=== PATIENT | male | born 1965 | race Caucasian/White ===

== ENCOUNTER 2022-07-16 14:28 | Emergency (ER) | payer SELFPAY ==
[~2022-07-16] VITALS: Ht 188 cm; Wt 81.7 kg
== END 2022-07-16 15:11 | disposition home or self-care (01) ==
LOC: ED 14:28
DX: T15.02XA Foreign body in cornea, left eye, initial encounter (principal); X58.XXXA Exposure to other specified factors, initial encounter; F17.200 Nicotine dependence, unspecified, uncomplicated
CPT/HCPCS: 65222; 99283-25

== ENCOUNTER 2024-02-10 18:41 | Inpatient (IN) | payer MEDICAID ==
[~2024-02-10] VITALS: Ht 188 cm; Wt 86.0 kg
--- OUTSIDE RECORDS SUMMARY | 2024-02-10 18:48 | XMS ---
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 Spike has no Care Guidelines for this patient. [place] VISIT COUNT (12 MO.) 2 [facility] Addie Ramirez (Sophia Cortes) 1 [facility] TOTAL 3 NOTE: Visits indicate total known visits. ED/C VISIT TRACKING (12 MO.) 02/10/2024 18:42 [facility] TYPE: Emergency COMPLAINT: - INFECTION [facility]07[facility]2024 12:[facility] TYPE: Emergency DIAGNOSES: - Pain in left foot - Superficial foreign body, left foot, initial encounter - foot pain 01/12/2024 17:53 [facility] Sophia SOLOMON (Sophia Cortes) TYPE: Emergency DIAGNOSES: - Hyperglycemia, unspecified - Nondisplaced fracture of middle phalanx of left lesser toe(s), initial encounter for closed fracture - Residual foreign body in soft tissue - foot pain, high blood sugar - Foot Swelling - High Blood Sugar (Symptomatic) INPATIENT VISIT TRACKING (12 MO.) No inpatient visits to display in this time frame [email or web address]
[2024-02-10] MEDS ORDERED: DAPTOmycin 500 MG/10 ML VIAL IV ONE (21:15)
[2024-02-10 21:54] LABS: BASOPHILS 0.5 % (0-2); EOSINOPHILS 2.4 % (0-6); HEMATOCRIT 49.2 % (35.0-50.0); HEMOGLOBIN 16.6 g/dL (12.0-18.0); LYMPHOCYTES 9.4 % (24-44); MCH 31.8 (27-36); MCHC 33.7 g/dl (30-36); MCV 94.4 fl (81-99); NEUTROPHILS 76.7 % (39-80); PLATELET COUNT 295 K/uL (140-440); RBC 5.21 M/ul (4.3-5.7); RDW 13.9 (10.5-15.0)
[2024-02-10 22:10] LABS: ALBUMIN 3.3 g/dL (3.4-5.0); ALBUMIN/GLOBULIN RATIO 0.73 (1.1-2.4); ANION GAP 12.2 (7-21); BILIRUBIN, TOTAL 0.5 ng/dL (0.2-1.0); BUN/CREATININE RATIO 12.62 (6.0-28.6); CALCIUM 9.4 mg/dL (8.5-10.1); CREATININE, SERUM 1.03 mg/dL (0.70-1.30); POTASSIUM 4.2 mmol/L (3.5-5.1); PROTEIN, TOTAL 7.8 g/dL (6.4-8.2)
[2024-02-10] MEDS ORDERED: DEXTROSE 5% - LACTATED RINGERS 1,000 ML IV SCH (23:00)
[2024-02-10] MEDS ORDERED: ondansetron HCL 4 MG/2 ML VIAL IV PRN (23:00)
[2024-02-10] MEDS ORDERED: MORPHINE SULFATE 4 MG/ML VIAL IV PRN (23:00)
[2024-02-10] MEDS ORDERED: ACETAMINOPHEN 325 MG TAB PO PRN (23:00)
[2024-02-10] MEDS ORDERED: Insulin Regular, Human 100 UNIT/ML ML SUB-Q SCH (23:15)
[2024-02-10] MEDS ORDERED: DEXAMETHASONE SOD PHOS 4 MG/ML VIAL IV ONE (23:45)
[2024-02-10] MEDS ORDERED: diphenhydrAMINE HCL 50 MG/ML VIAL IV ONE (23:45)
[2024-02-11] VITALS (9 sets, daily range): BP systolic 105–134; BP diastolic 63–82
--- NOTE | 2024-02-11 00:03 | NUR ---
PATIENT TO FLOOR BY VAT OPERATOR. VAT OPERATOR GAVE THIS RN REPORT. PATIENT TRANSFERRED FROM STRETCHER TO BED INDEPENDENTLY.
--- NOTE | 2024-02-11 00:20 | NUR ---
VS OBTAINED AND RECORDED. IV FLUID INFUSING PER ORDER. PATIENT IV FLUSHES WNL. CPOX IN PLACE. PATIENT EDUCATED TO ROOM AND CALL LIGHT. BED ALARM ON FOR SAFETY. ASSESSMENT COMPLETE. LLE PHOTOS OBTAINED AND PLACED IN CHART. PHOTO CONSENT OBTAINED AND PLACED IN CHART. PATIENT REPORTS PAIN, BUT DENIES THE NEED FOR PAIN MEDICATION. PATIENT LLE WRAPPED BY THIS RN WITH KERLIX. ALLERGY AND FALL BANDS PLACED ON PATIENT. PATIENT DENIES NEEDS AT THIS TIME. CALL LIGHT IN REACH.
--- NOTE | 2024-02-11 00:30 | NUR ---
THIS RN TALKED TO PATIENT REGARDING HIVES FROM MEDICATION DAPTOMYCIN IN THE ER. PATIENT STATES "I DON'T THINK THAT I HAD A REACTION. THE BLOOD PRESSURE CUFF WAS ON THE SAME ARM MY IV AND IT WOULD ONLY STING WHEN IT WOULD INFLATE. I THINK THE MEDICATION WOULD LEAK WHEN IT WOULD SQUEEZE CAUSING THE HIVES".
--- NOTE | 2024-02-11 02:15 | NUR ---
PATIENT RESTING IN BED ON BACK WITH EYES CLOSED. O2 SAT 93% ON RA. NO FURTHER NEEDS. CALL LIGHT IN REACH.
--- NOTE | 2024-02-11 03:19 | NUR ---
PATIENT RESTING IN BED ON BACK WITH EYES CLOSED. O2 90% ON RA. RESPIRATIONS EVEN AND UNLABORED. CALL LIGHT IN REACH.
--- NOTE | 2024-02-11 05:18 | NUR ---
PATIENT RESTING IN BED WITH EYES CLOSED. RESPIRATIONS EVEN AND UNLABORED. CALL LIGHT IN REACH.
[2024-02-11 05:34] LABS: BASOPHILS 0.4 % (0-2); EOSINOPHILS 0.1 % (0-6); HEMATOCRIT 46.6 % (35.0-50.0); HEMOGLOBIN 15.9 g/dL (12.0-18.0); LYMPHOCYTES 4.7 % (24-44); MCHC 34.2 g/dl (30-36); MCV 93.5 fl (81-99); MONOCYTES 2.8 % (0-12); PLATELET COUNT 282 K/uL (140-440); RBC 4.98 M/ul (4.3-5.7); RDW 13.4 (10.5-15.0)
[2024-02-11 05:46] LABS: ALBUMIN/GLOBULIN RATIO 0.71 (1.1-2.4); ANION GAP 13.3 (7-21); BILIRUBIN, TOTAL 0.6 ng/dL (0.2-1.0); BUN/CREATININE RATIO 15.38 (6.0-28.6); CALCIUM 9.3 mg/dL (8.5-10.1); CREATININE, SERUM 0.91 mg/dL (0.70-1.30); POTASSIUM 4.3 mmol/L (3.5-5.1); PROTEIN, TOTAL 7.2 g/dL (6.4-8.2)
[2024-02-11] MEDS ORDERED: GLUCAGON,HUMAN RECOMBINANT 1 MG/ML VIAL SUB-Q PRN ×2 (07:15→10:15)
[2024-02-11] MEDS ORDERED: IBLOOD GLUCOSE TEST STRIP 1 EA TEST XX PRN ×2 (07:15→10:15)
[2024-02-11] MEDS ORDERED: DEXTROSE 50% 50 ML SYR IV PRN ×4 (07:15→10:15)
[2024-02-11] MEDS ORDERED: DEXTROSE 5% 1,000 ML IV PRN ×2 (07:15→10:15)
--- NOTE | 2024-02-11 07:50 | NUR ---
RECEIVED REPORT FROM ROMEL POWERS. PT RESTING IN BED WITH EYES CLOSED. BREATHING EVEN AND UNLABORED, CPOX IN PLACE WITH >95% O2 SATURATION. CALL LIGHT WITHIN REACH.
[2024-02-11] MEDS ORDERED: IBLOOD GLUCOSE TEST STRIP 1 EA TEST VI SCH ×2 (08:00→12:00)
--- NOTE | 2024-02-11 08:28 | NUR ---
THIS RN CALLS DR. ROLDAN TO UPDATE ON PT CBG OF 462. MD STATES TO INCREASE SS TO HIGH SS, ADD A1C LAB ORDER, AND TO GIVE 15 UNITS HUMULIN INSTEAD OF 11 PER SS. ORDERS ENTERED, REPEAT BACK PERFORMED.
--- NOTE | 2024-02-11 08:29 | NUR ---
SPOKE WITH KEVON IN ELIGIBILITY. SHE IS GOING TO REVIEW IF PATIENT IS ELIGIBLE FOR MEDICAID.
--- NOTE | 2024-02-11 08:59 | NUR ---
DR. ROLDAN TO BEDSIDE.
[2024-02-11] MEDS ORDERED: DAPTOmycin 500 MG/10 ML VIAL IV SCH (09:00)
[2024-02-11] MEDS ORDERED: VANCOMYCIN PER PHARMACY PROTOCOL IV SCH (09:00)
--- NOTE | 2024-02-11 09:14 | NUR ---
PT REQUESTS ICE CHIPS, STATES IS OKAY TO GIVE, GIVEN.
--- NOTE | 2024-02-11 09:51 | NUR ---
UR CLINICAL REVIEW: [facility]- MEETS INPT FOR OSTEOMYELITIS SELF PAY, PENDING MEDICAID ELIGIBILITY APPLICATION INPT 02/10/24 @ 2257 ORDER MATCHES REG NO INSURANCE, NO AUTH REQUIRED PLAN TO RETURN HOME WHEN STABLE 02/13/24
[2024-02-11] MEDS ORDERED: ACETAMINOPHEN 325 MG TAB PO PRN (10:15)
[2024-02-11] MEDS ORDERED: ondansetron HCL 4 MG/2 ML VIAL IV PRN (10:15)
[2024-02-11] MEDS ORDERED: PROCHLORPERAZINE EDISYLATE 10 MG/2 ML VIAL IV PRN (10:15)
[2024-02-11] MEDS ORDERED: HYDROmorphone HCL 1 MG/ML SYR IV PRN (10:15)
[2024-02-11] MEDS ORDERED: bisacodyL 10 MG SUPP PR PRN (10:15)
[2024-02-11] MEDS ORDERED: PHARMACY RENAL DOSE ADJUSTMENT 1 DOSE MISC PO SCH (12:00)
--- NOTE | 2024-02-11 12:10 | NUR ---
In and spoke with Jaydon. He is now living in [place]. 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 His SO is not well and attempting to get SSI. He states they are living off of $400 per month and $10 dollars for food stamps. His truck is broke down and is has not had access to medical, food, work. [facility] was able to work with him and he now has OHP. We discussed transport and using the [employer] bus to get to [place] 5 miles, to the grocery store. He would like a DrMarquise at the clinic in [place]. I will contact for appt. Pt is using the [facility] in [place] at this time. Pt and so do not have phones or will not have internet much longer. Called the clinic in [place] and they have closed. Will work with pt to check if he would prefer a PCP in [place] (40miles) or [place] (5 miles). Updated pt he now has OHP.
--- NOTE | 2024-02-11 13:45 | NUR ---
THIS RN CALLS PROVIDER REGARDING NOT HAVING SS INSULIN ORDERS FOR THIS MEAL TIME. MD STATES TO ORDER HIGH DOSE SSI AND TO HOLD LANTUS ORDER FOR TONIGHT. ORDER ENTERED, REPEAT BACK PERFORMED.
--- NOTE | 2024-02-11 13:47 | NUR ---
MED REC COMPLETE
[2024-02-11] MEDS ORDERED: INSULIN LISPRO 100 UNIT/ML ML SUB-Q SCH ×2 (14:00→17:00)
--- NOTE | 2024-02-11 14:16 | NUR ---
PT AWAKE IN BED, STATES NO NEEDS AT THIS TIME, CALL LIGHT WITHIN REACH.
--- NOTE | 2024-02-11 14:35 | NUR ---
PT NOT AVAILABLE FOR VISIT. PROVIDED PRAYER.
--- NOTE | 2024-02-11 15:53 | NUR ---
DR. RUIZ TO BEDSIDE. PT AWAKE IN BED, GIRLFRIEND AT THE BEDSIDE. PT STATES PAIN IS 3/10 AT THIS TIME, DENIES NEEDS FOR PAIN CONTROL MEASURES AT THIS TIME. L FOOT DRESSING REMOVED BY DR. RUIZ. THIS RN ASSISTS DR. RUIZ IN WOUND SWAB, DEBREIDMENT OF WOUND. PT STATES NO INCREASE IN PAIN, TOLERATES WELL. PURULENT DRAINAGE PRESENT WHEN PRESSURE APPLIED AROUND WOUND AREA. PLAN OF CARE DISCUSSED WITH PT AND PT GIRLFRIEND, PT VERBALIZES UNDERSTANDING. SURGICAL CONSENT FORM COMPLETED WITH DR. RUIZ AND PT. DRESSES FOOT WITH IODOSORB, GAUZE, KERLEX, AND COBAN. MD STATES TO LEAVE DRESSING, STATES DRESSING WILL BE REMOVED IN OR. PT REQUESTS ICE WATER, GIVEN. PT STATES NO FURTHER NEEDS AT THIS TIME. CALL LIGHT WITHIN REACH.
--- NOTE | 2024-02-11 17:54 | NUR ---
THIS RN TO ROOM, PT AND GIRLFRIEND HAVE PIZZA FOR DINNER THAT THEY ORDERED. PT STATES NO NEEDS AT THIS TIME, CALL LIGHT WITHIN REACH.
--- NOTE | 2024-02-11 19:15 | NUR ---
REPORT RECEIVED FROM AGNES URENA. pt RESTING IN THE CHAIR. BOARD UPDATED. CALL LIGHT WITHIN REACH.
--- NOTE | 2024-02-11 19:20 | NUR ---
DR. CRAWLEY CALLED TO FOLLOW-UP TO SEE IF PODIATRY CAME TO SEE PATIENT, INFORMED THE PLAN WAS TO GO TO SURGERY TOMORROW MORNING WITH DR. RUIZ. PER DR. CRAWLEY, CONSULT ORDERED DISCONTINUED.
--- NOTE | 2024-02-11 20:33 | NUR ---
CAN OBTAINED VITALS AND I&O. PT STATES NO FURHTER NEEDS AT THIS ITME. CALL LIGHT WITHIN REACH AND IN ROOM.
[2024-02-11] MEDS ORDERED: INSULIN GLARGINE-YFGN 100 UNIT/ML ML SUB-Q SCH (21:00)
--- NOTE | 2024-02-11 21:00 | NUR ---
ASSESSMENT DONE. BG CHECKED WITH A RESULTS OF 297. SS INSULIN ADMINISTERED. SCHEDULED MEDICATION ADMINISTERED. pt DENIES ANY NEEDS AT THIS TIME. LEFT FOOT DRESSING CLEAN DRY AND INTACT. CALL LIGHT WITHIN REACH.
--- NOTE | 2024-02-11 23:46 | NUR ---
pt RESTING IN THE BED WITH EYES CLOSED. RR EVEN AND UNLABORED. pt PLACED ON 2LNC, SATTING AT 92%. NO OTHER NEEDS AT THIS TIME. CALL LIGHT WITHIN REACH.
[2024-02-12] VITALS (12 sets, daily range): BP systolic 91–117; BP diastolic 53–65
--- NOTE | 2024-02-12 00:38 | NUR ---
PHONE CALL PLACED TO MD ROLDAN ABOUT pt REFUSING TO PUT O2 ON AND HIS O2 SATURTION DROPPING DOWN TO 84%. pt WAS EDUCATED THAT HIS SURGERY COULD BE DELAYED IF WE DO NOT MANAGE HIS O2 CORRECTLY. THE PATIENT THEN STATED THAT HE'LL JUST GO HOME THEN. pt WAS WANTING TO TAKE OFF THE CPOX BECAUSE pt DID NOT LIKE THAT THE CPOX WAS ALARMING. STATED THAT WE COULD TAKE THE CPOX OFF.
--- NOTE | 2024-02-12 02:58 | NUR ---
pt RESTING IN THE BED. pt DENIES ANY NEEDS AT THIS TIME. CALL LIGHT WITHIN REACH.
--- NOTE | 2024-02-12 04:31 | NUR ---
pt RESTING IN THE BED WITH EYES CLOSED. RR EVEN AND UNLABORED. CALL LIGHT WITHIN REACH.
[2024-02-12 05:38] LABS: BASOPHILS 0.4 % (0-2); HEMATOCRIT 41.8 % (35.0-50.0); HEMOGLOBIN 14.3 g/dL (12.0-18.0); LYMPHOCYTES 10.3 % (24-44); MCHC 34.2 g/dl (30-36); MCV 93.6 fl (81-99); MONOCYTES 9.5 % (0-12); NEUTROPHILS 78.8 % (39-80); PLATELET COUNT 318 K/uL (140-440); RBC 4.47 M/ul (4.3-5.7); RDW 13.7 (10.5-15.0)
[2024-02-12 05:59] LABS: ANION GAP 10.8 (7-21); BUN/CREATININE RATIO 22.89 (6.0-28.6); CALCIUM 8.6 mg/dL (8.5-10.1); CREATININE, SERUM 0.83 mg/dL (0.70-1.30); MAGNESIUM 1.8 mg/dL (1.8-2.4); POTASSIUM 3.8 mmol/L (3.5-5.1)
--- NOTE | 2024-02-12 06:54 | NUR ---
pt RESTED THROUGHOUT THE NIGHT. pt REFUSED O2 IN THE NIGHT AND THE MD BEKA AWARE. NO OTHER CONCERNS AT THIS TIME.
--- NOTE | 2024-02-12 07:55 | NUR ---
RECEIVED REPORT FROM ROMEL POWERS. DONYA GILMORE TELLS THIS RN THAT PT REPORTS HE HAD EATEN PIZZA AT 0200 TODAY. THIS RN TO BEDSIDE, ASKS PT ABOUT LAST TIME HE ATE, PT STATES HE DID NOT EAT THIS MORNING, AND STATES "THE LAST TIME I ATE ANYTHING WAS AROUND NINE O'CLOCK LAST NIGHT". PT AND GIRLFRIEND EDUCATED ON RISKS OF EATING BEFORE SURGERY, PT AND GIRLFRIEND VERBALIZE UNDERSTANDING, STATE AGAIN THAT PT HAS NOT EATEN SINCE APPROXIMATELY 2100 ON 02/11/2024. PT STATES NO CURRENT NEEDS. PT HAS COMPLETED PRE-OP WIPEDOWN AND HAS CHANGED GOWNS. CALL LIGHT WITHIN REACH.
--- NOTE | 2024-02-12 08:03 | NUR ---
TOOK PT BLOOD SUGAR IT WAS AT 376. IT WAS CHARTED NURSE WAS NOTIFIED. PT NOTED "ITS PROBABLY HIGH BECAUSE I ATE A PIZZA AT 2 IN THE MORNING" NURSE WAS NOTIFIED WELL. PT DIDNT NEED ANYTHING ELSE AND CALL LIGHT IS WITHIN REACH.
--- NOTE | 2024-02-12 10:20 | NUR ---
VISITED DURING SPIRITUAL CARE ROUNDS. PT APPEARED TO BE SLEEPING. DID NOT DISTURB. PROVIDED PRAYER.
--- NOTE | 2024-02-12 10:40 | NUR ---
PT FOUND DRINKING WATER FROM [employer] CLAIMS ADJUSTER'S UPON ENTRY TO ROOM TO COMPLETE SURGICAL WIPE DOWN. OR CHARGE UPDATED AND SHEET METAL PRODUCTION WORKER NOTIFIED. OR CHARGE TO UPDATE DR. RUIZ. THIS RN IN ROOM TO INFORM PT OF RISK FOR NOT REMAINING NPO PRIOR TO SURGERY, INCLUDING FURTHER DELAY OF SURGERY, CANCELATION OF SURGERY, ASPIRATION RISK, POST SURGICAL COMPLICATIONS AND PROLONGED HOSPITAL STAY. PT AGGITATED AND STATES HE WANTS TO "TAKE MY CHANCES AND GO HOME SO I CAN EAT". THIS RN OFFERS AMA PAPERWORK AT [place] [facility] PT STATES HE WILL "WAIT AND TALK TO MY OLD LADY". PT AGREES TO NOT DRINK WATER IF HE PLANS TO REMAIN IN ROOM AND AWAIT SURGERY. CURTAIN AND DOOR LEFT OPEN TO INCREASE VISUALIZATION OF PT IN ROOM.
--- NOTE | 2024-02-12 11:21 | NUR ---
INFORMATION FOR [employer] PROVIDED. PATIENT AND SIGNIFICANT OTHER VERBALIZE NO OTHER NEEDS AT THIS TIME. [employer] NUMBER WAS PROVIDED YESTERDAY FOR MEDICAL TRANSPORTATION, DISCUSSED TRANSPORTATION WITH PATIENT AND SPOUSE. INFORMED HIM PCP HAS BEEN SET UP IN [facility] AND APPOINTMENT WILL BE ON DISCHARGE INSTRUCTIONS. VERBALIZES UNDERSTANDING.
--- NOTE | 2024-02-12 11:36 | NUR ---
PT LEAVES FLOOR WITH DAY SURGERY RN.
[2024-02-12] MEDS ORDERED: ondansetron HCL 4 MG/2 ML VIAL ONE (11:38)
[2024-02-12] MEDS ORDERED: SUCCINYLCHOLINE IN 0.9% NACL 200 MG/10 ML SYRINGE ONE (11:38)
[2024-02-12] MEDS ORDERED: LIDOCAINE HCL 2% 5 ML SDV ONE (11:38)
[2024-02-12] MEDS ORDERED: ROCURONIUM BROMIDE 50 MG/5 ML SYR ONE (11:38)
[2024-02-12] MEDS ORDERED: propofoL 200 MG/20 ML VIAL ONE ×2 (11:38→12:42)
[2024-02-12] MEDS ORDERED: fentaNYL citrate 100 MCG/2 ML VIAL ONE (11:38)
[2024-02-12] MEDS ORDERED: DEXAMETHASONE SOD PHOS 4 MG/ML VIAL ONE (11:47)
[2024-02-12] MEDS ORDERED: LIDOCAINE HCL 2% 20 MG/ML VIAL INJ ONE (11:47)
[2024-02-12] MEDS ORDERED: Ropivacaine HCl 0.5% 30 ML VIAL ONE (11:48)
[2024-02-12] MEDS ORDERED: INSULIN LISPRO 100 UNIT/ML ML SUB-Q SCH (12:00)
[2024-02-12] MEDS ORDERED: VANCOMYCIN HCL 500 MG VIAL ONE (12:12)
[2024-02-12] MEDS ORDERED: ePHEDrine sulfate 50 MG/ML AMP ONE (12:18)
[2024-02-12] MEDS ORDERED: VASOPRESSIN 20 UNITS/ML VIAL ONE (12:21)
--- NOTE | 2024-02-12 13:50 | NUR ---
2 CNAS WENT INTO PATIENTS ROOM TO GIVE PATIENT CHG WIPES FOR HIS PRE SURGICAL WIPEDOWN. PATIENT WAS ABLE TO INDEPENDENTLY WIPE HIMSELF DOWN. WHILE CHANGING PATIENTS LINENS, BOTH CNAS REALIZED THAT THE PATIENT HAS BEEN DRINKING WATER. BOTH CNAS AND RN TOLD PATIENT MULTIPLE TIMES THAT HE WAS NOT ALLOWED TO HAVE ANYTHING TO EAT OR DRINK. BOTH CNAS WENT TO NOTIFY THE AQUATICS INSTRUCTOR. AQUATICS INSTRUCTOR THEN CAME IN AND SPOKE TO PATIENT. CALL LIGHT WITHIN REACH, NO FURTHER NEEDS AT THIS TIME.
--- NOTE | 2024-02-12 14:10 | NUR ---
PT ARRIVES TO FLOOR WITH STATE FARM AGENT. RECEIVED REPORT FROM ROMEL RICHARDSON. PT DENIES PAIN, SOB AND NAUSEA AT THIS TIME. FAMILY AT THE BEDSIDE. DRESSING C/D/I. SURGY SHOE ON L FOOT. PT STATES NO FURTHER NEEDS AT THIS TIME, CALL LIGHT WITHIN REACH.
--- NOTE | 2024-02-12 14:28 | NUR ---
02/12/24 1428 Lenore Ayoub 1317- PT ARRIVES TO THE PACU WITH A NATURAL AIRWAY. PT IS SNORING LOUDLY AND MAINTAINING AIRWAY. BREATHING IS EVEN AND UNLABORD. MONITORS PUT IN PLACE. PT IS IN SEMI FOWLERS. PT DOES NOT REACT TO VERBAL AND TACTILE STIMULI. 1328- PT OPENS EYES AND IS TALKING WITH RN. PT ORIENTED TO PACU. PT DENIES PAIN AND NAUSEA. 1330- XRAY AT BEDSIDE. 1334-CBG 305. STOCKING AND SHOE PUT IN PLACE. PT COMPLAINS OF SOME DIZZINESS, BUT NO PAIN OR NAUSEA.PT O2 DROPPED TO 87%. PT ENCOURAGE TO COUGH AND DEEP BREATHE. SATS INCREASED TO 90%. 1338-SATS CONTINUE TO DECREASE DESPITE ALTERNATIVE APPROACHES. O2 VIA NASAL CANNULA PUT IN PLACE. INSENTIVE SPIROMETER GIVEN TO PT AND ENCOURAGED TO USE IT. PT 02 SATS INCREASE TO MID TO LOW 90S WHICH IS HIS BASELINE. 1345- PT USING INCENTIVE SPIROMETER OFF AND ON. PT DENIES PAIN AND NAUSEA. NO OTHER COMPLAINTS. 1405-PT BROUGHT FROM PACU TO MED/SURG. 1410- VS OBTAINED. BED PLUGGED IN AND IN LOWEST POSITION, CALL LIGHT WITHING REACH. CONTINUOUS OXIMETER PLACED ON PT. REPORT GIVEN TO SUSSY URENA AT BEDSIDE. NO QUESTIONS OR CONCERNS AT THIS TIME. CARE FOR PT TURNED OVER AT THIS TIME. 02 PLUGGED IN WALL AND PT SALINE LOCKED.
--- NOTE | 2024-02-12 15:23 | NUR ---
IN ROOM TO ASSESS VITALS AND ADMINISTER ABX. VITALS ARE WNL. SEE E-MAR FOR ABX INFORMATION. PATIENT DENIES ADDITIONAL NEEDS AT THIS TIME. FAMILY AT THE BEDSIDE. CALL LIGHT IN REACH.
[2024-02-12] MEDS ORDERED: SEVOFLURANE 250 ML BTL INH ONE (15:39)
--- NOTE | 2024-02-12 16:10 | NUR ---
IN ROOM TO ASSESS VITALS. PATIENT VITALS WNL. PATIENT STATES THEY HAVE "A LITTLE BIT OF A HEADACHE" AND RATES HEADACHE 2-3/10. PATIENT DECLINES TYLENOL, BLINDS CLOSED. PATIENT REQUESTS ICE WATER. ICE WATER PROVIDED. ABX INFUSION COMPLETE. IV FLUSHED WNL. SALINE LOCKED. PATIENT DENIES ADDITIONAL NEEDS AT THIS TIME. CALL LIGHT IN REACH.
--- NOTE | 2024-02-12 18:05 | NUR ---
THIS RN EDUCATES PT ON NEEDING TO VOID POST-OP. PT STATES NO NEED TO VOID AT THIS TIME. URINAL PROVIDED. THIS RN EDUCATES PT ON BLADDER SCANNER TO MONITOR FOR RETENTION, PT STATES "NO WE ARE NOT DOING THAT, I DON'T NEED TO DO THAT". PT EDUCATION ON RISKS WITH RETENTION, PT VERBALIZES UNDERSTANDING. PT STATES NO FURTHER NEEDS, CALL LIGHT WITHIN REACH.
--- NOTE | 2024-02-12 19:29 | NUR ---
REPORT RECIEVED FROM DAY SHIFT RN. PATIENT RESTING IN BED ON BACK WITH EYES CLOSED. RESIRATIONS EVEN AND UNLABORED. CALL LIGHT IN REACH.
--- NOTE | 2024-02-12 19:45 | NUR ---
CALL LIGHT ANSWERED. PATIENT REPORTS 8/ LLE PAIN. PRN PAIN MEDICATION ADMINISTERED PER PATIENT REQUEST. PATIENT HAS NO FURTHER NEEDS AT THIS TIME. CALL LIGHT IN REACH.
--- NOTE | 2024-02-12 20:33 | NUR ---
VENDING MACHINE COLLECTOR OBTAINED VITALS AND I&O. PT STATES THAT HE WOULD LIKE SOMETHING FOR PAIN. RN NOTIFED. PT STATES NO NOTHER NEEDS AT THIS TIME. CALL LIGHT WITHIN REACH.
--- NOTE | 2024-02-12 20:55 | NUR ---
PATIENT WITH COMPLAINTS OF 10/10 LLE PAIN. PRN PAIN MEDICATION ADMINISTERED PER PATIENT REQUEST. SCHEDULED MEDICATION ADMINISTERED. PATIENT EDUCATED ON THE IMPORATANCE OF BLOOD SUGAR CONTROL ON WOUND HEALING AND OVERALL HEALTH. PATIENT VERBILIZES UNDERSTANDING. PATIENT STATES HE REALLY WISHES HE COULD DRINK A SODA RIGHT NOW BUT KNOW THAT HE SHOUDLNT. THIS RN PROVIDED PATIENT WITH SUGAR FREE SPRITE. PATIENT APPEARS THANKFUL. THIS RN ASKED PATIENT IF HE WAS GOING TO START CHECKING HIS BLOOD SUGAR LEVEL AT HOME. PATIENT STATES HE NEEDS TO GET A WORKING BLOOD SUGAR MONITOR. PATIENT DENIES FURTHER NEEDS AT THIS TIME. LLE ELAVATED ON PILLOW. CPOX IN PLACE. IV FLUSHES WNL. CALL LIGHT IN REACH.
[2024-02-12] MEDS ORDERED: INSULIN GLARGINE-YFGN 100 UNIT/ML ML SUB-Q SCH (21:00)
--- NOTE | 2024-02-12 22:12 | NUR ---
PATIENT RESTING IN BED ON BACK WITH EYES CLOSED. RESPIRATIONS EVEN AND UNLABORED. CALL LIGHT IN REACH.
--- NOTE | 2024-02-12 22:25 | NUR ---
IV ABX INFUSING PER ORDER. NO FURTHER NEEDS. CALL LIGHT IN REACH.
--- NOTE | 2024-02-12 22:59 | NUR ---
PATIENT STATES HE IS COLD. TEMP TURNED UP IN ROOM AND WARM BLANKET PROVIDED. NO FURTHER NEEDS. CALL LIGHT IN REACH.
[2024-02-13] VITALS (10 sets, daily range): BP systolic 109–124; BP diastolic 54–70
--- NOTE | 2024-02-13 00:29 | NUR ---
PATIENT RESTING IN BED WITH EYES CLOSED. RESPIRATIONS EVEN AND UNLABORED. CALL LIGHT IN REACH.
--- NOTE | 2024-02-13 02:01 | NUR ---
VS OBTAINED AND RECORDED. PATIENT DENIES FURTHER NEEDS. CALL LIGHT IN REACH.
--- NOTE | 2024-02-13 04:39 | NUR ---
PATIENT O2 SAT IN MID-HIGH 80s WHILE SLEEPING. THIS RN PLACED OXY MASK AT 2L BECAUSE PATIENT STATED HE DID NOT LIKE THE NASAL CANNULA. PATIENT O2 SAT 92% OXY MASK WHILE RESTING. PATIENT REPORTS 8 LLE PAIN. PRN PAIN MEDICATION ADMINISTERED. LLE DRESSING C/D/I. VS OBTAINED AND RECORDED. PATIENT REPORTS NO FURTHER NEEDS AT THIS TIME. CALL LIGHT IN REACH.
[2024-02-13 05:29] LABS: BASOPHILS 0.7 % (0-2); EOSINOPHILS 3.8 % (0-6); HEMOGLOBIN 13.1 g/dL (12.0-18.0); MCH 31.5 (27-36); MCHC 33.5 g/dl (30-36); MCV 94.2 fl (81-99); MONOCYTES 11.2 % (0-12); NEUTROPHILS 74.3 % (39-80); PLATELET COUNT 278 K/uL (140-440); RBC 4.14 M/ul (4.3-5.7)
[2024-02-13 05:42] LABS: ANION GAP 8.9 (7-21); BUN/CREATININE RATIO 17.33 (6.0-28.6); CALCIUM 8.3 mg/dL (8.5-10.1); CREATININE, SERUM 0.75 mg/dL (0.70-1.30); MAGNESIUM 1.7 mg/dL (1.8-2.4); POTASSIUM 3.9 mmol/L (3.5-5.1)
--- NOTE | 2024-02-13 05:47 | NUR ---
SCHEDULED IV ABX INFUSING PER ORDER. PATIENT DENIES FURTHER NEEDS. CALL LIGHT IN REACHM
--- NOTE | 2024-02-13 07:10 | NUR ---
RECEIVED REPORT FROM ROMEL POWERS. PT RESTING IN BED WITH EYES CLOSED. CPOX IN PLACE, O2 SATURATION >92%. CALL LIGHT WITHIN REACH. ASSUMING CARE OF PT WITH ROMEL JOHN.
--- NOTE | 2024-02-13 09:02 | NUR ---
IN ROOM TO ROUND ON PATIENT. PATIENT SITTING UPRIGHT IN BED EATING BREAKFAST. PATIENT REPORTS 8/10 PAIN AND REQUESTS PAIN MEDICATION. PATIENT DENIES ADDITIONAL NEEDS AT THIS TIME. CALL LIGHT IN REACH.
--- NOTE | 2024-02-13 09:40 | NUR ---
IN ROOM TO ASSESS PATIENT AND ADMINISTER MEDICATIONS, SEE E-MAR. VITAL SIGNS ASSESSED AND ARE WNL. DR. RUIZ IN ROOM TO TAKE DOWN SURGERY SHOES AND DRESSING TO ASSESS SURGICAL SITE. NEW DRESSING APPLIED. SURGERY SHOE REAPPLIED. PATIENT REQUESTS ICE WATER. ICE WATER PROVIDED. PATIENT DENIES ADDTIONAL NEEDS AT THIS TIME. CALL LIGHT IN REACH.
--- NOTE | 2024-02-13 10:42 | NUR ---
IN ROOM TO ROUND ON PATIENT. PATIET SLEEPING IN BED. EASILY AWAKENS FOR PAIN REASSESSMENT. PAIN IMPROVED TO 7/10. PATIENT REPORTS PT WENT WELL. REQUESTS ICE WATER, ICE WATER PROVIDED. PATIENT DENIES ADDITOINAL NEEDS AT THIS TIME. CALL LIGHT IN REACH.
[2024-02-13] MEDS ORDERED: INSULIN LISPRO 100 UNIT/ML ML SUB-Q SCH (12:00)
--- NOTE | 2024-02-13 12:38 | OR ---
[facility] [address] [place], [place] [address] Signed DATE OF OPERATION: 02/12/2024 SURGEON: Nancy Gayle DPM PREOPERATIVE DIAGNOSES: Osteomyelitis with abscess formation and cellulitis, left fifth metatarsophalangeal joint region. POSTOPERATIVE DIAGNOSES: Osteomyelitis with abscess formation and cellulitis, left fifth metatarsophalangeal joint region. PROCEDURE: Amputation of left fifth digit and debridement of fifth metatarsal head. NURSE KOSHER SEALER: Bethel Noel. ANESTHESIA: General. HEMOSTASIS: With an ankle tourniquet. ESTIMATED BLOOD LOSS: Less than 3 mL or minimal. MATERIALS UTILIZED: 2-0 nylon, 3-0 nylon and calcium sulfate absorbable beads with vancomycin. PROCEDURE IN DETAIL: The patient was brought into the operating room and placed on the operating table in the supine position. The patient's left foot was scrubbed, prepped and draped in usual sterile technique. General anesthesia was administered. Attention was directed to the plantar aspect of the patient's left foot where ulcerations were noted in the fourth webspace and also into the intermetatarsal area. There was also a callus of scar tissue aforementioned noted under the fifth metatarsal head that was reportedly from a foreign body. Incision was then performed up through the webspace of fourth and fifth digits between the metatarsal heads and just proximal to the metatarsal heads. The incision was then deepened. Some purulent drainage was noted in this area then also extending Electronically Signed By: NANCY GAYLE DPM 02/13/24 1238 PATIENT NAME: MAYURI COE OPERATIVE REPORT DATE OF : 61 REPORT #: [id number] PHYSICIAN: NANCY GAYLE DPM PCP: NO PRIMARY CARE PHYSICIAN REPORT IS CONFIDENTIAL AND NOT TO BE RELEASED WITHOUT AUTHORIZATION [facility] [address] [place], [place] [address] Signed dorsally above the metatarsal heads. Severity of necrosis was encountered around the area of the metatarsophalangeal joint region. Careful dissection around the joint area revealed necrotic tissue around the base of the proximal phalanx and then extending to the dorsal aspect of the fifth metatarsal. With the appearance of the joint capsule, it was decided at that time that the fifth digit should be removed. A #64 blade was utilized to release the joint capsule around the metatarsophalangeal joint and fifth digit was excised. Careful debridement of necrotic tissue was performed and also avascular tissue such as capsule and tendon. Since the area of necrosis has extended over the dorsal aspect of the fifth metatarsal, this questioned whether or not the infection had ended up in the fifth metatarsal. There was a murcia discoloration of the fifth metatarsal, integrity seemed to be satisfactory. However, decision was made to resect the fifth metatarsal head because imaging had revealed changes consistent with osteomyelitis and there was discoloration noted in this region. Fifth metatarsal head was resected with a sagittal saw. Area was then flushed with copious amounts of sterile normal saline. Remaining unhealthy portions of skin or soft tissue were excised and debrided. Calcium sulfate beads with vancomycin powder mixed was then applied to the area around the distal open portion of the fifth metatarsal and in fact also in the soft tissue approximately to the mid portion of the fifth metatarsal. Decision was made to close the area with the exception of a small amount of purulence, the majority of the infection appears to have stabilized and so the area was closed utilizing 2-0 nylon and 5-0 nylon in interrupted suture technique as well as the vertical mattress technique. Mild tension only was noted at the surgical site. The soft tissue was approximated however, there is a fear that the patient may accidently ambulate on the foot. Therefore, Steri-Strips were also applied to help reinforce the area. Adaptic was then applied with Betadine soaked gauze and then fluff gauze and Coban. Ankle tourniquet was removed and prompt hyperemic response was noted to all the patient's remaining digits 1 through 4 of the left foot. The patient was then escorted to the recovery area with vital signs stable and the patient is to be readmitted to the general medical floor for further care and observation. Nancy Gayle DPM TM/MODL /[id number] Electronically Signed By: NANCY GAYLE DPM 02/13/24 1238 PATIENT NAME: MAYURI COE OPERATIVE REPORT DATE OF : 61 REPORT #: [id number] PHYSICIAN: NANCY GAYLE DPM PCP: NO PRIMARY CARE PHYSICIAN REPORT IS CONFIDENTIAL AND NOT TO BE RELEASED WITHOUT AUTHORIZATION [address] [address] Signed Copies: ~ Electronically Signed By: NANCY GAYLE DPM 02/13/24 1238 PATIENT NAME: MAYURI COE OPERATIVE REPORT DATE OF : 61 REPORT #: [id number] PHYSICIAN: NANCY GAYLE DPM PCP: NO PRIMARY CARE PHYSICIAN REPORT IS CONFIDENTIAL AND NOT TO BE RELEASED WITHOUT AUTHORIZATION
--- NOTE | 2024-02-13 17:43 | NUR ---
IN ROOM TO PERFORM AFTERNOON ASSESSMENT. PATIENT STATED THAT HIS PAIN WAS CLIMBING A LITTLE BIT. PATIENT RATED THEIR PAIN ON 11/03. PATIENT DECLINES PAIN MEDICATION, STATES HE WOULD LIKE TO WAIT A LITTLE LONGER TO SEE IF THE PAIN KEEPS INCREASING. PATIENT DENIES ADDITIONAL NEEDS AT THIS TIME. PATIENT HAD VISITORS PRESENT IN THE ROOM. CALL LIGHT IN REACH.
--- NOTE | 2024-02-13 19:34 | NUR ---
RECEIVED REPORT FROM DAY SHIFT RN. PATIENT IS RESTING IN BED WITH EYES CLOSED, CPOX READINGS WNL. CALL LIGHT IN REACH.
[2024-02-13] MEDS ORDERED: INSULIN GLARGINE-YFGN 100 UNIT/ML ML SUB-Q SCH (21:00)
--- NOTE | 2024-02-13 21:00 | NUR ---
PATIENTS VITALS TAKEN AND RECORDED. INTAKE AND OUTPUT RECORDED. BS CHECK AND SS PER ORDER. PATIENTS PM MEDS GIVEN PER ORDER. PATIENT RATES PAIN AT A 7/10 IN LLE, PRN PAIN MEDICATION GIVEN PER ORDER. PATIENTS IV FLUSHED AND SL PER ORDER. PATIENT IS ON RA. PATIENT PROVIDED FRESH ICE WATER. PATIENT DENIES ANY FURTHER NEEDS. CALL LIGHT IN REACH.
--- NOTE | 2024-02-13 22:18 | NUR ---
PATIENT IS RESTING IN BED WATCHING TV. LLE ELEVATED ON PILLOWS. PATIENT REPORTS IMPROVEMENT IN PAIN. PATIENT DENIES ANY FURTHER NEEDS. CALL LIGHT IN REACH.
--- NOTE | 2024-02-14 00:17 | NUR ---
PATIENT IS RESTING IN BED ON RIGHT SIDE WITH EYES CLOSED, CPOX READINGS ARE WNL. CALL LIGHT IN REACH.
--- NOTE | 2024-02-14 02:00 | NUR ---
PATIENT IS RESTING IN BED WITH EYES CLOSED, CPOX READINGS ARE WNL. CALL LIGHT IN REACH.
[2024-02-14 04:10] VITALS: BP 117/80
--- NOTE | 2024-02-14 04:15 | NUR ---
PATIENT IS RESTING IN BED WITH EYES CLSOED, CPOX READINGS ARE WNL. CALL LIGHT IN REACH.
--- NOTE | 2024-02-14 04:43 | NUR ---
PATIENT CALLED AND REPORTED SPILLED URINAL. PATIENTS URINE CLEANED UP ON FLOOR. VITALS TAKEN AND RECORDED. INTAKE AND OUTPUT RECORDED. PATIENT RATES PAIN AT A 7/10, PRN PAIN MEDICATION GIVEN PER ORDER. PATIENT DENIES ANY FURTHER NEEDS. CALL LIGHT IN REACH.
[2024-02-14 05:25] LABS: BASOPHILS 0.5 % (0-2); EOSINOPHILS 3.6 % (0-6); HEMATOCRIT 39.3 % (35.0-50.0); HEMOGLOBIN 13.5 g/dL (12.0-18.0); LYMPHOCYTES 14.9 % (24-44); MCH 31.9 (27-36); MCHC 34.2 g/dl (30-36); MCV 93.3 fl (81-99); MONOCYTES 12.9 % (0-12); NEUTROPHILS 68.1 % (39-80); PLATELET COUNT 287 K/uL (140-440); RBC 4.22 M/ul (4.3-5.7); RDW 14.1 (10.5-15.0)
[2024-02-14 05:41] LABS: ANION GAP 8.9 (7-21); BUN/CREATININE RATIO 14.66 (6.0-28.6); CALCIUM 8.3 mg/dL (8.5-10.1); CREATININE, SERUM 0.75 mg/dL (0.70-1.30); POTASSIUM 3.9 mmol/L (3.5-5.1)
--- NOTE | 2024-02-14 06:21 | NUR ---
PATIENTS AM IV ABX INFUSING PER ORDER. PATIENT IS RESTING IN BED. NO NEEDS NOTED. CALL LIGHT IN REACH.
--- NOTE | 2024-02-14 07:05 | NUR ---
RECEIVED REPORT FROM ROMEL KYLE. PT RESTING IN BED WITH EYES CLOSED, BREATHING EVEN AND UNLABORED. CALL LIGHT WITHIN REACH.
--- NOTE | 2024-02-14 07:25 | NUR ---
RECIEVED REPORT FROM ROMEL KYLE. PATIENT SLEEPING IN BED. BREATHING EVEN AND UNLABORED. CALL LIGHT IN REACH.
--- NOTE | 2024-02-14 07:37 | NUR ---
Board has been updated and call light has been placed within reach. Patient mentioned wanting to get dicharged home today. No requests from patient at this time
[2024-02-14 08:41] VITALS: BP 126/77
--- NOTE | 2024-02-14 08:47 | NUR ---
IN ROOM TO ADMINISTER MEDICATIONS, SEE E-MAR. PATIENT REPORTS 5/10 PAIN IN LEFT FOOT. PATIENT DECLINES PAIN MEDICATION. PATIENT DENIES ADDITIONAL NEEDS AT THIS TIME. CALL LIGHT IN REACH.
[2024-02-14] MEDS ORDERED: AMOX TR-K CLV1 EAC1 PO (10:15)
[2024-02-14] MEDS ORDERED: LANTUS SOL100 UNIT/1 SUB-Q (10:17)
[2024-02-14] MEDS ORDERED: NOVOLOG FL100 UNIT/1 SUB-Q (10:19)
[2024-02-14] MEDS ORDERED: BLOOD GLUCOSE1 EAC1 MISC (10:27)
[2024-02-14] MEDS ORDERED: BLOOD GLUCOSE1 EAC8 MISC (10:30)
[2024-02-14 10:32] VITALS: BP 126/77
[2024-02-14] MEDS ORDERED: [UNRECOGNIZED DRUG - OTHER] SUB-Q (10:34)
[2024-02-14] MEDS ORDERED: [UNRECOGNIZED DRUG - SUPPLY] MISC (10:35)
[2024-02-14 11:50] VITALS: BP 118/78
[2024-02-14] MEDS ORDERED: AMOXICILLIN/CLAVULANATE K 875 MG TAB PO SCH (17:00)
--- NOTE | 2024-02-16 11:45 | NUR ---
SPOKE WITH [facility]. CLARIFIED PATIENT INSURANCE INFORMATION. STATE HIS INSURANCE DOES NOT COVER LANTUS OR NOVOLOG. DR. ZAMUDIO NOTIFIED. STATES HE WILL GET NEW PRESCRIPTIONS SENT OVER TO PHARMACY. CALLED MAYURI AND NOTIFIED HIS PRESCRIPTIONS WILL BE SENT BY PHYSICIAN WITHIN THE NEXT COUPLE HOURS.
[2024-02-16] MEDS ORDERED: HUMALOG100 UNIT/2 SUB-Q ×2 (12:31→13:28)
[2024-02-16] MEDS ORDERED: LEVEMIR100 UNIT/1 SUB-Q (12:38)
== END 2024-02-14 11:55 | disposition home or self-care (01) | DRG 617 ==
LOC: ED 18:41 → MS 23:02
PROVIDERS: Family Medicine; Podiatrist Foot & Ankle Surgery; ADMIT Student in an Organized Health Care Education/Training Program; ATTEND Student in an Organized Health Care Education/Training Program
PROC: 0Y6N0ZF Detachment at Left Foot, Partial 5th Ray, Open Approach (ICD-10-PCS; principal; 2024-02-12 09:15)
DX: E11.69 Type 2 diabetes mellitus with other specified complication (principal); E11.52 Type 2 diabetes mellitus with diabetic peripheral angiopathy with gangrene; I48.21 Permanent atrial fibrillation; M86.9 Osteomyelitis, unspecified; L02.612 Cutaneous abscess of left foot; L03.116 Cellulitis of left lower limb; I10 Essential (primary) hypertension; E11.42 Type 2 diabetes mellitus with diabetic polyneuropathy; G47.33 Obstructive sleep apnea (adult) (pediatric); F17.200 Nicotine dependence, unspecified, uncomplicated; E11.65 Type 2 diabetes mellitus with hyperglycemia; E11.621 Type 2 diabetes mellitus with foot ulcer; L97.524 Non-pressure chronic ulcer of other part of left foot with necrosis of bone; X58.XXXD Exposure to other specified factors, subsequent encounter; S92.352G Displaced fracture of fifth metatarsal bone, left foot, subsequent encounter for fracture with delayed healing; Z88.1 Allergy status to other antibiotic agents; Z18.81 Retained glass fragments
CPT/HCPCS: 01482; 36415; 73630; 73700; 80048; 80053; 83036; 83605; 83735; 85025; 85651; 86140; 87205; 97163; A9270; C1713; J0330; J0878; J1100; J1200; J1815; J2405; J2704; J2795; J3010; J3370; J3490; J7121; Q9967

== ENCOUNTER 2024-07-10 02:16 | Emergency (ER) | payer OTHER ==
[~2024-07-10] VITALS: Ht 188 cm; Wt 84.0 kg
[~2024-07-10 02:16] MED LIST: AMOX TR-K CLV1 EAC1 PO; BLOOD GLUCOSE1 EAC1 MISC; BLOOD GLUCOSE1 EAC8 MISC; HUMALOG100 UNIT/2 SUB-Q; LANTUS SOL100 UNIT/1 SUB-Q; LEVEMIR100 UNIT/1 SUB-Q; NOVOLOG FL100 UNIT/1 SUB-Q; [UNRECOGNIZED DRUG - OTHER] SUB-Q; [UNRECOGNIZED DRUG - SUPPLY] MISC
[2024-07-10 02:50] LABS: BASOPHILS 0.6 % (0-2); EOSINOPHILS 3.3 % (0-6); HEMATOCRIT 46.6 % (35.0-50.0); HEMOGLOBIN 15.7 g/dL (12.0-18.0); LYMPHOCYTES 13.4 % (24-44); MCH 31.6 (27-36); MCHC 33.7 g/dl (30-36); MCV 93.8 fl (81-99); MONOCYTES 10.7 % (0-12); PLATELET COUNT 295 K/uL (140-440); RBC 4.97 M/ul (4.3-5.7)
[2024-07-10] MEDS ORDERED: BACTRIM DS TAB1 EACH PO (02:53)
[2024-07-10] MEDS ORDERED: TRIMETHOPRIM/SULFAMETHOXAZOLE 1 EA HOME.PACK PO ONE (03:00)
[2024-07-10 03:55] VITALS: BP 137/87
== END 2024-07-10 03:54 | disposition home or self-care (01) ==
LOC: ED 02:16
PROVIDERS: Family Medicine
DX: E11.621 Type 2 diabetes mellitus with foot ulcer (principal); L97.511 Non-pressure chronic ulcer of other part of right foot limited to breakdown of skin; F17.200 Nicotine dependence, unspecified, uncomplicated; Z79.4 Long term (current) use of insulin; Z79.899 Other long term (current) drug therapy; Z88.1 Allergy status to other antibiotic agents
CPT/HCPCS: 36415; 73660; 85025; 86140; 99283; A9270

== ENCOUNTER 2024-07-16 15:22 | Emergency (ER) | payer OTHER ==
[~2024-07-16] VITALS: Ht 188 cm; Wt 80.6 kg
[~2024-07-16 15:22] MED LIST changes: +BACTRIM DS TAB1 EACH PO
--- OUTSIDE RECORDS SUMMARY | 2024-07-16 15:28 | XMS ---
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 E.D. VISIT COUNT (12 MO.) 3 JAMIE Navarro 2 [facility]. Mary RenoDeyvi ([place]) TOTAL 5 NOTE: Visits indicate total known visits. 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 [place] TYPE: Emergency DIAGNOSES: - Pain in left foot - Superficial foreign body, left foot, initial encounter - foot pain 01/12/2024 17:[address] [facility] Sophia SOLOMON ([place]) TYPE: Emergency DIAGNOSES: - Hyperglycemia, unspecified - Nondisplaced fracture of middle phalanx of left lesser toe(s), initial encounter for closed fracture - Residual foreign body in soft tissue - foot pain, high blood sugar - Foot Swelling - High Blood Sugar (Symptomatic) INPATIENT VISIT TRACKING (12 MO.) 02/10/2024 23:02 JAMIE Crews [facility] TYPE: Medical Surgical COMPLAINT: - OSTEOMYELITIS POSS CONTINUED FOREIGN BODY RT FOOR DIAGNOSES: - Allergy status to other antibiotic agents - Cellulitis of left lower limb - Cutaneous abscess of left foot - Displaced fracture of fifth metatarsal bone, left foot, subsequent encounter for fracture with delayed healing - Essential (primary) hypertension - Exposure to other specified factors, subsequent encounter - Nicotine dependence, unspecified, uncomplicated - Non-pressure chronic ulcer of other part of left foot with necrosis of bone - Obstructive sleep apnea (adult) (pediatric) - Osteomyelitis, unspecified - Permanent atrial fibrillation - Retained glass fragments - Type 2 diabetes mellitus with diabetic peripheral angiopathy with gangrene - Type 2 diabetes mellitus with diabetic polyneuropathy - Type 2 diabetes mellitus with foot ulcer - Type 2 diabetes mellitus with hyperglycemia - Type 2 diabetes mellitus with other specified complication [id number]
[2024-07-16] MEDS ORDERED: DIPHTH,PERTUSS(ACELL),TET VAC 0.5 ML SYRINGE IM ONE (19:15)
[2024-07-16] MEDS ORDERED: AMP/SULBACTAM SOD 3 GM in SODIUM CHLORIDE 0.9% 100 ML IV ONE (19:15)
[2024-07-16] MEDS ORDERED: AMP/SULBACTAM SOD 3 GM VIAL IV ONE (20:07)
[2024-07-16 20:18] LABS: BASOPHILS 0.7 % (0-2); EOSINOPHILS 2.6 % (0-6); HEMATOCRIT 47.7 % (35.0-50.0); HEMOGLOBIN 16.2 g/dL (12.0-18.0); LYMPHOCYTES 11.8 % (24-44); MCH 31.4 (27-36); MCV 92.3 fl (81-99); NEUTROPHILS 73.9 % (39-80); PLATELET COUNT 356 K/uL (140-440); RBC 5.17 M/ul (4.3-5.7); RDW 14.1 (10.5-15.0)
[2024-07-16 20:43] LABS: ALBUMIN 3.3 g/dL (3.4-5.0); ALBUMIN/GLOBULIN RATIO 0.79 (1.1-2.4); ANION GAP 14.5 (7-21); BILIRUBIN, TOTAL 0.5 mg/dL (0.2-1.0); BUN/CREATININE RATIO 11.76 (6.0-28.6); CREATININE, SERUM 0.85 mg/dL (0.70-1.30); POTASSIUM 4.5 mmol/L (3.5-5.1); PROTEIN, TOTAL 7.5 g/dL (6.4-8.2)
[2024-07-16] MEDS ORDERED: BACTRIM DS TAB1 EACH PO (20:59)
[2024-07-16] MEDS ORDERED: AMOX TR-K CLV1 EAC1 PO (20:59)
[2024-07-16] MEDS ORDERED: AMOXICILLIN/CLAVULANATE K 875 MG HOME.PACK PO ONE (21:00)
[2024-07-16 21:30] VITALS: BP 116/80
== END 2024-07-16 21:30 | disposition home or self-care (01) ==
LOC: ED 15:22
PROVIDERS: Emergency Medicine
DX: L03.115 Cellulitis of right lower limb (principal); M86.9 Osteomyelitis, unspecified; E11.9 Type 2 diabetes mellitus without complications; F17.200 Nicotine dependence, unspecified, uncomplicated; Z79.4 Long term (current) use of insulin; Z88.1 Allergy status to other antibiotic agents; Z79.899 Other long term (current) drug therapy
CPT/HCPCS: 36415; 73630; 80053; 85025; 86140; 87070; 87205; 90471; 90715; 96365; 99283-25; J0295

== ENCOUNTER 2024-10-12 17:58 | Emergency (ER) | payer OTHER ==
[~2024-10-12] VITALS: Ht 188 cm; Wt 81.5 kg
[2024-10-12] MEDS ORDERED: ACETAMINOPHEN 500 MG TAB PO ONE (20:00)
[2024-10-12] MEDS ORDERED: HYDROCODON-ACE1 EA10 PO (20:51)
[2024-10-12] MEDS ORDERED: HYDROCODONE BIT/ACETAMINOPHEN 5/325 MG 1 TAB HOME.PACK PO ONE (21:00)
[2024-10-12 21:41] VITALS: BP 137/86
== END 2024-10-12 21:42 | disposition home or self-care (01) ==
LOC: ED 17:58
DX: S42.011A Anterior displaced fracture of sternal end of right clavicle, initial encounter for closed fracture (principal); E11.9 Type 2 diabetes mellitus without complications; F17.200 Nicotine dependence, unspecified, uncomplicated; Z88.1 Allergy status to other antibiotic agents; Z79.4 Long term (current) use of insulin; V29.99XA Rider (driver) (passenger) of other motorcycle injured in unspecified traffic accident, initial encounter
CPT/HCPCS: 73000; 99283; A9270